=== PATIENT | male | born 1960 | race American Indian/Alaskan Native ===

== ENCOUNTER 2017-05-06 06:40 | Day surgery (SDC) | payer BC ==
[2017-05-06 07:39] LABS: Basophils % (Auto) 0.6 % (0.0-1.8); Eosinophils % (Auto) 0.9 % (0.0-4.3); Hematocrit 42.8 % (35.5-45.6); Hemoglobin 14.6 gm/dl (11.8-15.2); Mean Corpuscular HGB Conc 34 % (32-34); Mean Corpuscular Hemoglobin 31 pg (28-32); Mean Corpuscular Volume 89 fl (84-94); Platelet Count 208 K/mm3 (140-440); Red Blood Count 4.79 M/mm3 (3.65-5.03); Red Cell Distribution Width 14.7 % (13.2-15.2); White Blood Count 5.1 K/mm3 (4.5-11.0)
[2017-05-06 07:51] LABS: INR 1.02 (0.87-1.13)
[2017-05-06 07:55] LABS: Anion Gap 15 mmol/L; BUN/Creatinine Ratio 11; Blood Urea Nitrogen 10 mg/dL (9-20); Calcium 8.4 mg/dL (8.4-10.2); Carbon Dioxide 24 mmol/L (22-30); Chloride 106.9 mmol/L (98-107); Glucose 99 mg/dL (75-100); Potassium 4.5 mmol/L (3.6-5.0); Sodium 141 mmol/L (137-145)
[2017-05-06] MEDS ORDERED: NACL 0.9% 500 ML 500 ML IV SCH (08:00)
[2017-05-06] MEDS ORDERED: ECOTRIN PO ONE (08:30)
[2017-05-06] MEDS: SUBLIMAZE ONE ×2 (10:00→10:08)
[2017-05-06] MEDS: XYLOCAINE 2% INFILTRATI ONE ×2 (10:01→10:08)
[2017-05-06] MEDS: VERSED ONE ×2 (10:01→10:08)
[2017-05-06] MEDS: HEPARIN 10,000 UNITS/10 ML ONE ×2 (10:02→10:09)
[2017-05-06] MEDS: CALAN ONE ×2 (10:02→10:09)
[2017-05-06] MEDS: HEPARIN/NS 5000 UNIT/500ML(CATH LAB) 1,000 ML IR ONE ×2 (10:04→10:08)
[2017-05-06] MEDS: NITROGLYCERIN SYRINGE 3 ML ONE ×2 (10:04→10:09)
--- NOTE | 2017-05-06 10:42 | Short Stay Summary ---
Short Stay Documentation Date of service: 05/06/17 - History H&P: obtained from office - Allergies and Medications Current Medications: Allergies No Known Allergies Allergy (Verified 05/06/17 07:11) Home Medications Medication Instructions Recorded Confirmed Last Taken Type AtorvaSTATin [Lipitor] 80 mg PO QHS 05/06/17 05/06/17 05/05/17 History Ergocalciferol [Vitamin D2] 1 cap PO QWEEK 05/06/17 05/06/17 05/05/17 History Metoprolol Succinate 200 mg PO DAILY 05/06/17 05/06/17 05/05/17 History SUMAtriptan SUCCINATE [Imitrex] 50 mg PO DAILY 05/06/17 05/06/17 1 Month Ago History Sildenafil Citrate [Viagra] 25 mg PO QDAY PRN 05/06/17 05/06/17 2 Weeks Ago History Active Medications Sodium Chloride (Nacl 0.9% 500 Ml) 500 mls @ 50 mls/hr IV DIRECT ARTIS Stop: 05/06/17 17:59 Last Admin: 05/06/17 08:06 Dose: 50 mls/hr - Brief post op/procedure progress note Date of procedure: 05/06/17 Pre-op diagnosis: sob Post-op diagnosis: same Procedure: see report Anesthesia: local Estimated blood loss: none Pathology: none - Disposition Condition at discharge: Good Disposition: [id number] TO HOME OR SELFCARE - Discharge Diagnoses (1) Cardiomyopathy Status: Chronic Qualifiers: Cardiomyopathy type: unspecified Qualified Code(s): I42.9 - Cardiomyopathy , unspecified (2) Hypertension Status: Chronic Qualifiers: Hypertension type: essential hypertension Qualified Code(s): I10 - Essential (primary) hypertension (3) SOB (shortness of breath) on exertion Status: Chronic Short Stay Discharge Plan Activity: advance as tolerated Diet: low fat, low cholesterol, low salt Wound: keep clean and dry Follow up with: DARI GOMEZ MD [Staff Physician] - 7 Days
--- NOTE | 2017-05-06 11:07 | Cardiac Catherization Report ---
LEFT HEART CATHETERIZATION ORDERING PHYSICIAN: Cortez Bartlett MD CLINICAL INFORMATION: This is a 56-year-old -[place] gentleman with questionable history of HOCM in 2007 with no LVOT obstruction. The patient's ejection fraction has progressively gone down, now his EF is 35-40% and he has shortness of breath. He is here for a left heart catheterization. PROCEDURE DETAILS: Left heart catheterization performed via the right radial artery, sterile technique, local anesthesia, 6-Ecuadorean radial sheath inserted. PROCEDURE FINDINGS: Left system engaged with a JL3.5 catheter. Left main is a large caliber vessel, patent. LAD is a large caliber vessel, is patent from proximally and distally. Diagonal 1 is a medium caliber vessel, it is patent. Ramus is a medium caliber vessel, it is patent. Circumflex is a large, dominant vessel, it is patent. OM1 and OM2 are medium caliber vessel. Left posterior descending artery is small to medium caliber vessel that is patent. RCA engaged with JR4, it is a medium caliber, nondominant vessel, is patent. LV gram done in [facility] and [facility] shows EF around 35-40% with apical and anterior apical hypokinesis. LVEDP 25. No significant gradient across the aortic valve on pullback. 5-Ecuadorean catheters were all taken over a guidewire. The 6-[place]cuadorean radial sheath was discontinued. radial dressing applied. No hematoma. No bleeding. SUMMARY: 1. Patent coronaries, left dominant system. Left main patent, LAD patent, ramus is patent, circumflex patent. RCA is a medium caliber nondominant, patent. 2. Moderate LV dysfunction, EF 35-40% with LVEDP 20-25mm hg, no significant gradient across pullback. I would suggest a cardiac MRI for further evaluation of LV function and constrictive versus restrictive pattern. JOB# [id number] MARLENI/TIERA AGUILAR
[2017-05-06 14:24] VITALS: BP 127/81
== END 2017-05-06 13:50 | disposition home or self-care (01) ==
LOC: CATHLABREC 06:40
PROVIDERS: ATTEND Internal Medicine
DX: R06.02 Shortness of breath (principal); R94.39 Abnormal result of other cardiovascular function study; R07.9 Chest pain, unspecified; I42.2 Other hypertrophic cardiomyopathy; E78.5 Hyperlipidemia, unspecified; Z72.89 Other problems related to lifestyle; Z79.82 Long term (current) use of aspirin
CPT/HCPCS: 36415; 80048; 85025; 85610; 93005; 93010; 93458; C1894; J1644; J2250; J3010; J7040; Q9967